=== PATIENT | female | born 1985 | race Caucasian/White ===

== ENCOUNTER 2021-01-04 14:44 | Inpatient (IN) | payer OTHER, SELFPAY ==
[~2021-01-04 14:44] MED LIST: Iopamidol-370 76% 500 ML 1 ML ONE
[2021-01-04 15:40] LABS: #Basophils 0.1 thou/uL (0.0-0.2); #Eosinphils 0.1 thou/uL (0.0-0.7); #Lymphocytes 3.3 thou/uL (1.20-3.40); #Monocytes 1.4 thou/uL (0.11-0.59); #Neutrophils 10.5 thou/uL (1.40-6.50); %Basophils 0.6 % (0.0-1.0); %Eosinophils 0.3 % (0.0-10.0); %Lymphocytes 21.7 % (21.0-51.0); %Monocytes 9.2 % (0.0-10.0); %Neutrophils 68.3 % (42.0-75.0); Hemoglobin 16.1 g/dL (12.0-16.0); Mean Corpuscular HGB CONC 35.6 g/dL (32.0-36.0); Mean Corpuscular Hemoglobin 33.7 pg (27.0-31.0); Mean Corpuscular Volume 94.7 fL (78.0-98.0); Mean Platelet Volume 8.8 fL (7.4-10.4); Platelet Count 336 thou/uL (130-400); RBC Distribution Width 11.9 % (11.5-14.5); Red Blood Cell (RBC) Count 4.77 mill/uL (4.20-5.40); White Blood Cell (WBC) Count 15.4 thou/uL (4.8-10.8)
[2021-01-04 15:57] LABS: ALT (SGPT) 15 U/L (8-55); AST (SGOT) 16 U/L (5-34); Albumin 4.9 g/dL (3.5-5.0); Alkaline Phosphatase 88 U/L (40-110); Anion Gap 16 mmol/L (10-20); BUN (Urea Nitrogen) 22 mg/dL (7.0-18.7); Bilirubin, Total 4.1 mg/dL (0.2-1.2); Calc. Creatinine Clearance 0 mL/min (70-130); Calcium 10.3 mg/dL (7.8-10.44); Carbon Dioxide 26 mmol/L (22-29); Chloride 102 mmol/L (98-107); Globulin 3.5 g/dL (2.4-3.5); Glucose 98 mg/dL (70-105); Potassium 3.6 mmol/L (3.5-5.1); Protein, Total 8.4 g/dL (6.0-8.3); Sodium 140 mmol/L (136-145)
[2021-01-04 16:38] LABS: Acetaminophen Less than 6.0 mcg/mL (10.0-30.0); Alcohol Less than 10 mg/dL (Less than 10); Salicylate Less than 8.0 mg/dL (15.0-30.0)
[2021-01-04 17:29] LABS: Bacteria/HPF None Seen HPF (None Seen); Bilirubin 1+ (Negative); Blood, Urine 1+ (Negative); Clarity Clear (Clear); Glucose, Urine (Dipstick) Normal (Negative); Ketone, Urine Greater than 150 mg/dL (Negative); Leukocyte Negative Leu/uL (Negative); Nitrite Negative (Negative); Protein, Urine (Dipstick) 50 mg/dL (Neg-Trace); Specific Gravity, Urine 1.036 (1.002-1.036); Urobilinogen 3 mg/dL (Less than 2); WBC/HPF 0-3 HPF (0-3); pH, Urine 6.5 (5.0-9.0)
[2021-01-04 17:30] LABS: Pregnancy Test - Urine (BHCG) Negative (Negative); Pregu Control Background? CLEAR/WHITE (CLR/WHITE); Pregu Control Bar Appear? YES (CONTROL BAR); Specific Gravity 1.036 (1.002-1.036)
[2021-01-04 17:37] LABS: Amphetamine Not Detected (NotDetected); Barbiturates Screen Not Detected (NotDetected); Benzodiazepine Screen Not Detected (NotDetected); Cocaine Metabolite Screen Not Detected (NotDetected); Medtox Control Line Valid? VALID (VALID); Medtox Reader # READER 4; Methadone Not Detected (NotDetected); Methamphetamine Not Detected (NotDetected); Opiate Screen Not Detected (NotDetected); Oxycodone Screen Not Detected (NotDetected); Phencyclidine (PCP) Not Detected (NotDetected); THC/Cannabinoid Screen Detected (NotDetected); Tricyclic Screen Not Detected (NotDetected)
[2021-01-04 17:49] LABS: Prothrombin Time 13.5 sec (12.0-14.7)
[2021-01-04 19:02] LABS: Lactic Acid 1.6 mmol/L (0.5-2.2)
[2021-01-04] MEDS ORDERED: cefTRIAXone\\ROCEPHIN 1 GM VIAL ONE (21:33)
[2021-01-04] MEDS ORDERED: Ondansetron PF 4 MG/2 ML Vial IVP PRN (23:45)
[2021-01-04] MEDS ORDERED: Ondansetron ODT 4 MG TAB SL PRN (23:45)
[2021-01-04 23:50] VITALS: BMI 30.8
[2021-01-05] MEDS ORDERED: Acetaminophen 325 MG TAB PO PRN (01:38)
[2021-01-05] MEDS ORDERED: Acetaminophen 650 MG Suppository PR PRN (01:38)
[2021-01-05] MEDS ORDERED: Sodium Chloride 0.9% 1,000 ML IV SCH (01:45)
[2021-01-05 05:06] LABS: SARS-CoV-2 PCR by NAA Not Detected (NotDetected)
[2021-01-05 05:45] LABS: #Basophils 0.1 thou/uL (0.0-0.2); #Lymphocytes 3.7 thou/uL (1.20-3.40); #Monocytes 1.1 thou/uL (0.11-0.59); #Neutrophils 7.8 thou/uL (1.40-6.50); %Basophils 0.7 % (0.0-1.0); %Eosinophils 0.3 % (0.0-10.0); Hemoglobin 15.7 g/dL (12.0-16.0); Mean Corpuscular HGB CONC 34.5 g/dL (32.0-36.0); Mean Corpuscular Hemoglobin 32.8 pg (27.0-31.0); Mean Corpuscular Volume 95.1 fL (78.0-98.0); Mean Platelet Volume 8.9 fL (7.4-10.4); Platelet Count 308 thou/uL (130-400); RBC Distribution Width 11.9 % (11.5-14.5); Red Blood Cell (RBC) Count 4.79 mill/uL (4.20-5.40); White Blood Cell (WBC) Count 12.8 thou/uL (4.8-10.8)
[2021-01-05 05:59] LABS: Anion Gap 17 mmol/L (10-20); BUN (Urea Nitrogen) 15 mg/dL (7.0-18.7); Calc. Creatinine Clearance 166 mL/min (70-130); Calcium 9.5 mg/dL (7.8-10.44); Carbon Dioxide 21 mmol/L (22-29); Chloride 105 mmol/L (98-107); Glucose 88 mg/dL (70-105); Potassium 3.5 mmol/L (3.5-5.1); Sodium 139 mmol/L (136-145)
[2021-01-05 06:19] LABS: HBSAg Index 0.21 S/CO (0-0.99); Hep B Surf Ag Non-Reactive S/CO (NonReactive); Hep C IgG Ab Non-Reactive (NonReactive)
[2021-01-05 06:20] LABS: Hep C Index 0.18 S/CO (0-0.79)
[2021-01-05 06:21] LABS: Hep A IgM AB Non-Reactive (NonReactive); Hep A IgM S/CO 0.16 S/CO (0-0.79)
[2021-01-05 06:26] LABS: HBCM Index 0.09 S/CO (0-0.79); Hepatitis B Core IgM Abs Non-Reactive (NonReactive)
[2021-01-05] MEDS: Famotidine 20 MG TAB PO SCH ×2 (08:31→22:20)
[2021-01-05] MEDS ORDERED: Famotidine/PF 20 mg/2ml Vial SLOW IVP SCH (09:00)
[2021-01-05] MEDS: cefTRIAXone\\ROCEPHIN 1 GM in Sodium Chloride 0.9% 100 ML IVPB SCH (22:19)
[2021-01-05] MEDS: clonazePAM 0.5 MG TAB PO SCH (22:20)
[2021-01-06] MEDS: Morphine 4 MG/ML VIAL SLOW IVP PRN (00:45)
[2021-01-06 06:21] LABS: #Basophils 0.1 thou/uL (0.0-0.2); #Eosinphils 0.1 thou/uL (0.0-0.7); #Lymphocytes 3.4 thou/uL (1.20-3.40); #Neutrophils 5.6 thou/uL (1.40-6.50); %Basophils 0.9 % (0.0-1.0); %Eosinophils 0.9 % (0.0-10.0); %Lymphocytes 33.5 % (21.0-51.0); %Monocytes 9.4 % (0.0-10.0); %Neutrophils 55.3 % (42.0-75.0); Hemoglobin 13.6 g/dL (12.0-16.0); Mean Corpuscular HGB CONC 35.3 g/dL (32.0-36.0); Mean Corpuscular Hemoglobin 33.9 pg (27.0-31.0); Mean Corpuscular Volume 96.1 fL (78.0-98.0); Mean Platelet Volume 9.4 fL (7.4-10.4); Platelet Count 261 thou/uL (130-400); RBC Distribution Width 11.8 % (11.5-14.5); Red Blood Cell (RBC) Count 4.01 mill/uL (4.20-5.40); White Blood Cell (WBC) Count 10.2 thou/uL (4.8-10.8)
[2021-01-06 06:22] LABS: Anion Gap 17 mmol/L (10-20); BUN (Urea Nitrogen) 10 mg/dL (7.0-18.7); Calc. Creatinine Clearance 168 mL/min (70-130); Calcium 8.8 mg/dL (7.8-10.44); Carbon Dioxide 16 mmol/L (22-29); Chloride 108 mmol/L (98-107); Glucose 83 mg/dL (70-105); Potassium 3.1 mmol/L (3.5-5.1); Sodium 138 mmol/L (136-145)
[2021-01-06 06:40] LABS: HIV (1/2) Antibody/Antigen Non-Reactive (NonReactive); HIV 1/2 INDEX 0.14 S/CO (<1.00)
[2021-01-06] MEDS: Famotidine 20 MG TAB PO SCH ×2 (08:42→20:09)
[2021-01-06] MEDS: FLUoxetine HCl 20 MG CAP PO SCH (08:43)
[2021-01-06] MEDS: clonazePAM 0.5 MG TAB PO SCH ×2 (08:43→20:09)
[2021-01-06 16:36] LABS: Chlam.trachomatis by PCR,Urine Not Detected (NotDetected)
[2021-01-06] MEDS: cefTRIAXone\\ROCEPHIN 1 GM in Sodium Chloride 0.9% 100 ML IVPB SCH (21:50)
[2021-01-07 07:22] LABS: #Basophils 0.1 thou/uL (0.0-0.2); #Eosinphils 0.1 thou/uL (0.0-0.7); #Lymphocytes 4.3 thou/uL (1.20-3.40); #Monocytes 1.2 thou/uL (0.11-0.59); #Neutrophils 8.8 thou/uL (1.40-6.50); %Basophils 0.7 % (0.0-1.0); %Eosinophils 0.9 % (0.0-10.0); %Lymphocytes 29.8 % (21.0-51.0); %Neutrophils 60.6 % (42.0-75.0); Hemoglobin 14.7 g/dL (12.0-16.0); Mean Corpuscular HGB CONC 33.7 g/dL (32.0-36.0); Mean Corpuscular Hemoglobin 31.8 pg (27.0-31.0); Mean Corpuscular Volume 94.3 fL (78.0-98.0); Mean Platelet Volume 9.4 fL (7.4-10.4); Platelet Count 286 thou/uL (130-400); RBC Distribution Width 11.7 % (11.5-14.5); Red Blood Cell (RBC) Count 4.62 mill/uL (4.20-5.40); White Blood Cell (WBC) Count 14.5 thou/uL (4.8-10.8)
[2021-01-07 07:42] LABS: Anion Gap 16 mmol/L (10-20); BUN (Urea Nitrogen) 9 mg/dL (7.0-18.7); Calc. Creatinine Clearance 157 mL/min (70-130); Calcium 9.4 mg/dL (7.8-10.44); Carbon Dioxide 20 mmol/L (22-29); Chloride 105 mmol/L (98-107); Glucose 80 mg/dL (70-105); Sodium 138 mmol/L (136-145)
[2021-01-07 07:55] LABS: Potassium 2.9 mmol/L (3.5-5.1)
[2021-01-07] MEDS: Famotidine 20 MG TAB PO SCH ×2 (08:17→20:57)
[2021-01-07] MEDS: FLUoxetine HCl 20 MG CAP PO SCH (08:17)
[2021-01-07] MEDS: clonazePAM 0.5 MG TAB PO SCH ×2 (08:17→20:57)
[2021-01-07] MEDS ORDERED: Potassium Chloride 20 MEQ TAB PO SCH (08:30)
[2021-01-07] MEDS: cefTRIAXone\\ROCEPHIN 1 GM in Sodium Chloride 0.9% 100 ML IVPB SCH (22:42)
[2021-01-07] MEDS: Morphine 4 MG/ML VIAL SLOW IVP PRN (23:26)
[2021-01-08] MEDS ORDERED: Lorazepam 2 MG/ML VIAL SLOW IVP SCH (06:30)
[2021-01-08 07:54] VITALS: TEMP 98.5
[2021-01-08] MEDS: Famotidine 20 MG TAB PO SCH (08:28)
[2021-01-08] MEDS: clonazePAM 0.5 MG TAB PO SCH (08:28)
[2021-01-08] MEDS: FLUoxetine HCl 20 MG CAP PO SCH (08:28)
[2021-01-08 12:25] LABS: Anion Gap 13 mmol/L (10-20); BUN (Urea Nitrogen) 9 mg/dL (7.0-18.7); Calc. Creatinine Clearance 153 mL/min (70-130); Calcium 9.2 mg/dL (7.8-10.44); Carbon Dioxide 23 mmol/L (22-29); Chloride 106 mmol/L (98-107); Glucose 104 mg/dL (70-105); Potassium 3.2 mmol/L (3.5-5.1); Sodium 139 mmol/L (136-145)
[2021-01-08] MEDS ORDERED: Potassium Chloride 20 MEQ TAB PO SCH (13:00)
[2021-01-08 13:02] VITALS: BP 124/84
== END 2021-01-08 13:33 | DRG 885 ==
LOC: ERS 14:44 → OBSVTOIN 22:09 → T4-A 22:09
PROVIDERS: ADMIT Internal Medicine; ATTEND Hospitalist
DX: F31.5 Bipolar disorder, current episode depressed, severe, with psychotic features (principal); G92 Toxic encephalopathy; Z20.822 Contact with and (suspected) exposure to COVID-19; F41.9 Anxiety disorder, unspecified; F12.10 Cannabis abuse, uncomplicated; F17.210 Nicotine dependence, cigarettes, uncomplicated; E80.6 Other disorders of bilirubin metabolism; N70.11 Chronic salpingitis; E86.0 Dehydration; Z88.0 Allergy status to penicillin
CPT/HCPCS: 36415; 70450; 74177; 76705; 80048; 80053; 80074; 80306; 80307; 81003; 81015; 81025; 82140; 82248; 82550; 83605; 84443; 85025; 85610; 87389; 87491; 87591; 87635; 93005; 96365; 96366; 96367; 96375; G0378; J0696; J2060; J2270; J3490; Q9967; U0003; U0005

== ENCOUNTER 2023-01-22 10:41 | Outpatient (CLI) | payer BC | END 2023-01-22 10:42 | disposition home or self-care (01) | LOC: BICMAMMO 10:41 | PROVIDERS: ATTEND Obstetrics & Gynecology | DX: N63.21 Unspecified lump in the left breast, upper outer quadrant (principal) | CPT/HCPCS: 77066; G0279 ==

== ENCOUNTER 2024-04-21 09:53 | Day surgery (SDC) | payer BC ==
[2024-04-14 12:31] VITALS: BMI 38.0
[2024-04-21] MEDS ORDERED: Ondansetron PF 4 MG/2 ML Vial ONE (12:06)
[2024-04-21] MEDS ORDERED: Dexamethasone 4 mg/ml Vial ONE (12:06)
[2024-04-21] MEDS ORDERED: Lidocaine 2% PF 5 ML VIAL ONE (12:06)
[2024-04-21] MEDS ORDERED: PROPOFOL 20 ML ONE (12:06)
[2024-04-21] MEDS ORDERED: Midazolam HCl 2 mg/2 ml Vial ONE ×2 (12:47→13:09)
[2024-04-21] MEDS ORDERED: Famotidine/PF 20 mg/2ml Vial ONE (12:48)
[2024-04-21] MEDS ORDERED: CEFAZOLIN 2 GM VIAL ONE (13:09)
[2024-04-21] MEDS ORDERED: Sodium Chloride 0.9% 100 ML ONE (13:09)
[2024-04-21] MEDS ORDERED: Lidocaine 1% (PF) 30 ML VIAL ONE (13:09)
[2024-04-21] MEDS ORDERED: fentaNYL PF 100 MCG/2 ML SYRINGE ONE (13:09)
[2024-04-21] MEDS ORDERED: methylPREDNISolone Acetate 40 mg/ml Vial ONE (13:12)
[2024-04-21] MEDS ORDERED: EPINEPHrine 1 MG/ML VIAL ONE (13:14)
[2024-04-21] MEDS ORDERED: HYDROmorphone 2 MG/ML VIAL ONE (13:38)
[2024-04-21] MEDS ORDERED: fentaNYL 50 mcg/mL 1 mL Vial ONE ×2 (14:13→14:36)
[2024-04-21] MEDS ORDERED: HYDROcodone/Acetaminophen 5/325 mg Tablet ONE (14:55)
== END 2024-04-21 16:00 | disposition home or self-care (01) ==
LOC: SDC 09:53
PROVIDERS: ATTEND Orthopaedic Surgery
PROC: 01N50ZZ Release Median Nerve, Open Approach (ICD-10-PCS; principal; 2024-04-21)
PROC: 3E0U33Z Introduction of Anti-inflammatory into Joints, Percutaneous Approach (ICD-10-PCS; principal; 2024-04-21)
DX: G56.03 Carpal tunnel syndrome, bilateral upper limbs (principal); F17.210 Nicotine dependence, cigarettes, uncomplicated; F41.9 Anxiety disorder, unspecified; G43.909 Migraine, unspecified, not intractable, without status migrainosus; Z88.0 Allergy status to penicillin; Z79.899 Other long term (current) drug therapy; Z79.3 Long term (current) use of hormonal contraceptives
CPT/HCPCS: A6223; J0171; J1030; J1100; J1170; J2001; J2250; J2405; J2704; J3010